=== PATIENT | male | born 1965 | race Caucasian/White ===

== ENCOUNTER 2016-06-16 08:42 | Emergency (ER) | payer BC ==
[~2016-06-16] VITALS: Ht 182.9 cm; Wt 111.4 kg
[2016-06-16 09:32] LABS: HEMATOCRIT 45.3 % (38.0-50.0); MCH 30.8 PG (29.0-34.0); MCV 90.6 FL (86-99); MEAN PLAT.VOLUME 10.5 uM^3 (9.0-12.4); PLATELET COUNT 209 K/uL (156-360); RBC DIS.WIDTH-CV 13.2 % (11.8-14.6); RBC DIS.WIDTH-SD 43.5 % (39-53); WHITE BLOOD COUNT 6.5 K/uL (4.1-10.2)
[2016-06-16 09:46] LABS: CHLORIDE 106 mEq/L (99-109); POTASSIUM 4.6 mEq/L (3.7-5.4); SODIUM 137 mEq/L (136-147)
[2016-06-16 09:48] LABS: GLUCOSE 138 mg/dL (70-99)
[2016-06-16 09:49] LABS: ANION GAP 9 MEQ/L (2-14)
[2016-06-16 09:50] LABS: TOTAL BILIRUBIN 0.6 mg/dL (0.0-1.0)
[2016-06-16 09:51] LABS: ALKALINE PHOSPHATASE 81 IU/L (3-129)
[2016-06-16 09:52] LABS: GFR ESTIMATE (CALCULATED) > 59 mL/min/
[2016-06-16 09:52] LABS: ADD MIUA? NO; BILIRUBIN NEGATIVE; BLOOD NEGATIVE; COLOR YELLOW ((YELLOW)); GLUCOSE (STRIP) NEGATIVE; KETONES NEGATIVE; LEUKOCYTES NEGATIVE; NITRITE NEGATIVE; PROTEIN (STRIP) NEGATIVE; SPECIFIC GRAVITY 1.012 (1.000-1.030); UCUL ADDED? NO; UROBILINOGEN 0.2 MG/DL (0.2-1.0)
[2016-06-16 09:53] LABS: UREA NITROGEN (BUN) 24 mg/dL (9-23)
[2016-06-16 10:20] LABS: INFLUENZA A VIRAL ANTIGEN NEGATIVE; INFLUENZA B VIRAL ANTIGEN NEGATIVE
[2016-06-16] MEDS ORDERED: TRAMADOL HCL50 MG PO (10:49)
[2016-06-16] MEDS ORDERED: ZOFRAN ODT4 MG PO (10:49)
[2016-06-16 11:06] VITALS: BP 115/65
== END 2016-06-16 11:09 | disposition home or self-care (01) ==
LOC: EME 08:42
PROVIDERS: Nurse Practitioner Family
DX: A08.4 Viral intestinal infection, unspecified (principal); Z86.73 Personal history of transient ischemic attack (TIA), and cerebral infarction without residual deficits; Z87.891 Personal history of nicotine dependence
CPT/HCPCS: 74176; 80053; 81003; 85027; 87502; 99281; 99284; J2405; J3010; J7030

== ENCOUNTER 2016-10-18 23:15 | Emergency (ER) | payer BC ==
[~2016-10-18] VITALS: Ht 182.9 cm; Wt 112.5 kg
[~2016-10-18 23:15] MED LIST: TRAMADOL HCL50 MG PO; ZOFRAN ODT4 MG PO
[2016-10-19 01:23] LABS: HEMATOCRIT 46.2 % (38.0-50.0); MCH 30.8 PG (29.0-34.0); MCHC 33.5 G/DL (30.0-36.0); MCV 91.7 FL (86-99); MEAN PLAT.VOLUME 10.4 uM^3 (9.0-12.4); PLATELET COUNT 184 K/uL (156-360); RBC DIS.WIDTH-SD 42.9 % (39-53); RED BLOOD COUNT 5.04 M/uL (4.00-5.50); WHITE BLOOD COUNT 8.6 K/uL (4.1-10.2)
[2016-10-19 01:41] LABS: CHLORIDE 106 mEq/L (99-109); POTASSIUM 4.1 mEq/L (3.7-5.4); SODIUM 142 mEq/L (136-147)
[2016-10-19 01:42] LABS: MAGNESIUM 2.3 mg/dL (1.3-2.7)
[2016-10-19 01:43] LABS: GLUCOSE 103 mg/dL (70-99)
[2016-10-19 01:44] LABS: ANION GAP 9 MEQ/L (2-14)
[2016-10-19 01:47] LABS: GFR ESTIMATE (CALCULATED) > 59 mL/min/
[2016-10-19 01:48] LABS: UREA NITROGEN (BUN) 24 mg/dL (9-23)
[2016-10-19 01:49] LABS: TROP-I INTERPRETATION NEGATIVE; TROPONIN-I < 0.01 ng/mL (0.0-0.30)
[2016-10-19 02:37] VITALS: BP 100/66
== END 2016-10-19 02:30 | disposition home or self-care (01) ==
LOC: EME 23:15
DX: R00.2 Palpitations (principal); R07.9 Chest pain, unspecified; F32.9 Major depressive disorder, single episode, unspecified; Z86.73 Personal history of transient ischemic attack (TIA), and cerebral infarction without residual deficits; Z87.891 Personal history of nicotine dependence
CPT/HCPCS: 71020; 80048; 83735; 84484; 85027; 93005

== ENCOUNTER 2016-12-01 06:29 | Emergency (ER) | payer BC ==
[~2016-12-01] VITALS: Ht 182.9 cm; Wt 114.1 kg
[2016-12-01 07:35] LABS: HEMATOCRIT 43.7 % (38.0-50.0); MCH 31.3 PG (29.0-34.0); MCHC 34.6 G/DL (30.0-36.0); MCV 90.7 FL (86-99); MEAN PLAT.VOLUME 9.9 uM^3 (9.0-12.4); PLATELET COUNT 162 K/uL (156-360); RBC DIS.WIDTH-CV 12.9 % (11.8-14.6); RBC DIS.WIDTH-SD 42.5 % (39-53); RED BLOOD COUNT 4.82 M/uL (4.00-5.50); WHITE BLOOD COUNT 7.6 K/uL (4.1-10.2)
[2016-12-01] MEDS ORDERED: LISINOPRIL20 MG PO (07:39)
[2016-12-01] MEDS ORDERED: OMEPRAZOLE20 MG PO (07:40)
[2016-12-01] MEDS ORDERED: HYDROCHLOROTH12.5 M3 PO (07:40)
[2016-12-01] MEDS ORDERED: ST. JOSEPH ASPI81 MG PO (07:41)
[2016-12-01] MEDS ORDERED: LIPITOR80 MG PO (07:41)
[2016-12-01] MEDS ORDERED: LOPRESSOR50 MG PO (07:41)
[2016-12-01] MEDS ORDERED: CLONAZEPAM1 MG PO (07:42)
[2016-12-01] MEDS ORDERED: CILOSTAZOL100 MG PO (07:42)
[2016-12-01] MEDS ORDERED: ZOLOFT50 MG PO (07:43)
[2016-12-01 08:09] LABS: ANION GAP 6 MEQ/L (2-14); CHLORIDE 100 MEQ/L (99-109); CREATINE KINASE 79 IU/L (1-294); GFR ESTIMATE (CALCULATED) > 59 mL/min/; GLUCOSE 109 mg/dL (70-99); POTASSIUM 4.4 MEQ/L (3.7-5.4); SAMPLE HEMOLYSIS CHECK 0; SAMPLE ICTERIC CHECK 0; SAMPLE LIPEMIA CHECK 0; SODIUM 136 MEQ/L (136-147); UREA NITROGEN (BUN) 21 mg/dL (9-23)
[2016-12-01 10:03] VITALS: BP 98/61
== END 2016-12-01 10:07 | disposition home or self-care (01) ==
LOC: EME 06:29
PROVIDERS: Emergency Medicine
DX: R20.2 Paresthesia of skin (principal); I73.9 Peripheral vascular disease, unspecified; I69.351 Hemiplegia and hemiparesis following cerebral infarction affecting right dominant side; Z79.82 Long term (current) use of aspirin; Z87.891 Personal history of nicotine dependence
CPT/HCPCS: 80048; 82550; 85027; 99281; 99284; J7030

== ENCOUNTER 2016-12-08 04:50 | Emergency (ER) | payer BC ==
[~2016-12-08] VITALS: Ht 182.9 cm; Wt 115.3 kg
[~2016-12-08 04:50] MED LIST changes: +CILOSTAZOL100 MG PO; +CLONAZEPAM1 MG PO; +HYDROCHLOROTH12.5 M3 PO; +LIPITOR80 MG PO; +LISINOPRIL20 MG PO; +LOPRESSOR50 MG PO; +OMEPRAZOLE20 MG PO; +ST. JOSEPH ASPI81 MG PO; +ZOLOFT50 MG PO
[2016-12-08 05:38] LABS: HEMATOCRIT 43.8 % (38.0-50.0); MCH 31.5 PG (29.0-34.0); MCHC 34.9 G/DL (30.0-36.0); MCV 90.3 FL (86-99); MEAN PLAT.VOLUME 10.2 uM^3 (9.0-12.4); PLATELET COUNT 192 K/uL (156-360); RBC DIS.WIDTH-CV 12.9 % (11.8-14.6); RBC DIS.WIDTH-SD 41.7 % (39-53); RED BLOOD COUNT 4.85 M/uL (4.00-5.50)
[2016-12-08 05:43] LABS: CHLORIDE 102 mEq/L (99-109); POTASSIUM 3.9 mEq/L (3.7-5.4); SODIUM 138 mEq/L (136-147)
[2016-12-08 05:45] LABS: GLUCOSE 111 mg/dL (70-99)
[2016-12-08 05:49] LABS: ANION GAP 12 MEQ/L (2-14); GFR ESTIMATE (CALCULATED) > 59 mL/min/
[2016-12-08 05:50] LABS: UREA NITROGEN (BUN) 15 mg/dL (9-23)
[2016-12-08 06:08] LABS: TOTAL BILIRUBIN 0.6 mg/dL (0.0-1.0)
[2016-12-08 06:09] LABS: ALKALINE PHOSPHATASE 86 IU/L (3-129)
[2016-12-08 06:11] LABS: DIRECT BILIRUBIN 0.2 mg/dL (0.0-0.3)
[2016-12-08 06:12] LABS: LIPASE 47 U/L (1.0-51.0)
[2016-12-08 07:35] LABS: ADD MIUA? NO; BILIRUBIN NEGATIVE; BLOOD NEGATIVE; COLOR STRAW ((YELLOW)); GLUCOSE (STRIP) NEGATIVE; KETONES NEGATIVE; LEUKOCYTES NEGATIVE; NITRITE NEGATIVE; PROTEIN (STRIP) NEGATIVE; SPECIFIC GRAVITY 1.004 (1.000-1.030); UROBILINOGEN 0.2 MG/DL (0.2-1.0)
[2016-12-08 07:37] LABS: UCUL ADDED? NO
[2016-12-08] MEDS ORDERED: MIRALAX17 GM PO (13:04)
[2016-12-08 13:19] VITALS: BP 104/66
== END 2016-12-08 13:19 | disposition home or self-care (01) ==
LOC: EME 04:50
DX: R10.30 Lower abdominal pain, unspecified (principal); K59.00 Constipation, unspecified; R11.2 Nausea with vomiting, unspecified; Z79.82 Long term (current) use of aspirin; Z87.891 Personal history of nicotine dependence
CPT/HCPCS: 74177; 80048; 80076; 81003; 83690; 85027; J2270; J2405; J7030

== ENCOUNTER 2016-12-14 04:10 | Emergency (ER) | payer BC ==
[~2016-12-14] VITALS: Ht 182.9 cm; Wt 113.6 kg
[~2016-12-14 04:10] MED LIST changes: +MIRALAX17 GM PO
[2016-12-14 05:09] VITALS: BP 140/86
== END 2016-12-14 05:10 | disposition home or self-care (01) ==
LOC: EME 04:10
DX: S93.402A Sprain of unspecified ligament of left ankle, initial encounter (principal); M77.32 Calcaneal spur, left foot; X50.9XXA Other and unspecified overexertion or strenuous movements or postures, initial encounter
CPT/HCPCS: 73610; 99281; 99283

== ENCOUNTER 2017-02-08 22:40 | Emergency (ER) | payer BC ==
[~2017-02-08] VITALS: Ht 182.9 cm; Wt 118.3 kg
[2017-02-09] MEDS ORDERED: PERCOCET 5/31 TABLET PO (00:04)
[2017-02-09] MEDS ORDERED: INDOCIN50 MG PO (00:04)
[2017-02-09 00:23] VITALS: BP 133/72
== END 2017-02-09 00:24 | disposition home or self-care (01) ==
LOC: EME 22:40 → RME 22:40
DX: I80.02 Phlebitis and thrombophlebitis of superficial vessels of left lower extremity (principal); F32.9 Major depressive disorder, single episode, unspecified; I69.328 Other speech and language deficits following cerebral infarction; I69.311 Memory deficit following cerebral infarction; I69.353 Hemiplegia and hemiparesis following cerebral infarction affecting right non-dominant side; Z87.891 Personal history of nicotine dependence; Z79.82 Long term (current) use of aspirin; Z88.6 Allergy status to analgesic agent; Z88.8 Allergy status to other drugs, medicaments and biological substances
CPT/HCPCS: 93971; 99281; 99284

== ENCOUNTER 2017-07-03 13:18 | Inpatient (IN) | payer BC ==
[~2017-07-03] VITALS: Ht 182.9 cm; Wt 105.5 kg
[~2017-07-03 13:18] MED LIST changes: +INDOCIN50 MG PO; +PERCOCET 5/31 TABLET PO
[2017-07-03 14:17] LABS: HEMOGLOBIN 16.4 G/DL (12.5-16.6); MCH 32.3 PG (29.0-34.0); MCHC 35.7 G/DL (30.0-36.0); MCV 90.6 FL (86-99); PLATELET COUNT 217 K/uL (156-360); RBC DIS.WIDTH-CV 12.8 % (11.8-14.6); RBC DIS.WIDTH-SD 42.1 % (39-53); RED BLOOD COUNT 5.08 M/uL (4.00-5.50); WHITE BLOOD COUNT 6.6 K/uL (4.1-10.2)
[2017-07-03 14:26] LABS: CHLORIDE 98 mEq/L (99-109); POTASSIUM 3.3 mEq/L (3.7-5.4); SODIUM 138 mEq/L (136-147)
[2017-07-03 14:27] LABS: GLUCOSE 97 mg/dL (70-99)
[2017-07-03 14:31] LABS: GFR ESTIMATE (CALCULATED) > 59 mL/min/ (58.99-99999); SERUM ETHYL ALCOHOL < 10 mg/dL
[2017-07-03 14:33] LABS: UREA NITROGEN (BUN) 12 mg/dL (9-23)
[2017-07-03 14:35] LABS: ACETAMINOPHEN (TYLENOL) < 10 mcg/mL (10-30); SALICYLATE < 5.0 MG/DL (15-30)
[2017-07-03 14:56] LABS: AMPHETAMINE NEGATIVE (500 ng/mL); BARBITURATES NEGATIVE (200 ng/mL); BENZODIAZEPINES NEGATIVE (150 ng/mL); BUPRENORPHINE NEGATIVE (10 ng/mL); COCAINE NEGATIVE (150 ng/mL); METHADONE NEGATIVE (200 ng/mL); METHAMPHETAMINE NEGATIVE (500 ng/mL); OPIATES (MORPHINE) NEGATIVE (100 ng/mL); OXYCODONE NEGATIVE (100 ng/mL); PHENCYCLIDINE NEGATIVE (25 ng/mL); PROPOXYPHENE NEGATIVE (300 ng/mL); THC CANNABINOIDS NEGATIVE (50 ng/mL); TRICYCLIC ANTIDEPRESSANTS NEGATIVE (300 ng/mL)
[2017-07-03] MEDS ORDERED: LASIX20 MG PO (15:30)
[2017-07-03] MEDS ORDERED: CRESTOR40 MG PO (15:30)
[2017-07-03] MEDS ORDERED: LYRICA25 MG PO (15:30)
[2017-07-03] MEDS ORDERED: LOMOTIL TABLET1 EACH PO (15:31)
[2017-07-03] MEDS ORDERED: LEVOTHYROXINE112 MCG PO (15:31)
[2017-07-03 18:14] VITALS: BP 132/72
[2017-07-04 07:19] VITALS: BP 108/58
[2017-07-04 15:49] VITALS: BP 94/55
[2017-07-05 07:25] VITALS: BP 119/64
[2017-07-05] MEDS ORDERED: MIRTAZAPINE15 MG PO (09:35)
== END 2017-07-05 12:57 | disposition home or self-care (01) | DRG 882 ==
LOC: EME 13:18 → EDOF 16:53 → 1WEST 16:53 → ENRESERV 17:38 → 1WEST 18:07
PROVIDERS: Emergency Medicine; Psychiatry & Neurology Psychiatry
PROC: 0HQEXZZ Repair Left Lower Arm Skin, External Approach (ICD-10-PCS; principal; 2017-07-03)
DX: F43.25 Adjustment disorder with mixed disturbance of emotions and conduct (principal); F43.23 Adjustment disorder with mixed anxiety and depressed mood; S61.512A Laceration without foreign body of left wrist, initial encounter; X78.8XXA Intentional self-harm by other sharp object, initial encounter; Z59.0 Homelessness; I69.351 Hemiplegia and hemiparesis following cerebral infarction affecting right dominant side; I69.328 Other speech and language deficits following cerebral infarction; R47.81 Slurred speech; I69.311 Memory deficit following cerebral infarction; G89.29 Other chronic pain; M54.9 Dorsalgia, unspecified; G25.81 Restless legs syndrome; E03.9 Hypothyroidism, unspecified; E78.00 Pure hypercholesterolemia, unspecified; Z87.891 Personal history of nicotine dependence
CPT/HCPCS: 80048; 82948; 85027; 90837; 99281; 99285; G0480

== ENCOUNTER 2017-07-15 13:00 | Emergency (ER) | payer BC ==
[~2017-07-15] VITALS: Ht 182.9 cm; Wt 110.9 kg
[~2017-07-15 13:00] MED LIST changes: +CRESTOR40 MG PO; +LASIX20 MG PO; +LEVOTHYROXINE112 MCG PO; +LOMOTIL TABLET1 EACH PO; +LYRICA25 MG PO; +MIRTAZAPINE15 MG PO
[2017-07-15 14:57] LABS: HEMATOCRIT 39.5 % (38.0-50.0); MCH 32.2 PG (29.0-34.0); MCHC 34.7 G/DL (30.0-36.0); MCV 92.9 FL (86-99); RBC DIS.WIDTH-CV 13.4 % (11.8-14.6); RBC DIS.WIDTH-SD 45.2 % (39-53); RED BLOOD COUNT 4.25 M/uL (4.00-5.50); WHITE BLOOD COUNT 7.1 K/uL (4.1-10.2)
[2017-07-15 15:02] LABS: CHLORIDE 111 mEq/L (99-109); POTASSIUM 4.1 mEq/L (3.7-5.4); SODIUM 144 mEq/L (136-147)
[2017-07-15 15:04] LABS: GLUCOSE 90 mg/dL (70-99); PTT 28.1 SEC (25-37)
[2017-07-15 15:08] LABS: CREATININE 0.9 mg/dL (0.6-1.3); GFR ESTIMATE (CALCULATED) > 59 mL/min/ (58.99-99999)
[2017-07-15 15:09] LABS: UREA NITROGEN (BUN) 11 mg/dL (9-23)
[2017-07-15 15:23] LABS: HEMOGLOBIN 13.7 G/DL (12.5-16.6)
[2017-07-15 15:27] LABS: PLAT.SUFFICIENCY ADEQUATE
[2017-07-15 15:31] LABS: PLATELET COUNT 143 K/uL (156-360)
[2017-07-15] MEDS ORDERED: ULTRAM50 MG PO (16:30)
[2017-07-15 16:43] VITALS: BP 137/78
== END 2017-07-15 16:44 | disposition home or self-care (01) ==
LOC: EME 13:00
PROVIDERS: Nurse Practitioner Family
DX: I73.9 Peripheral vascular disease, unspecified (principal); R20.2 Paresthesia of skin; I69.328 Other speech and language deficits following cerebral infarction; I69.351 Hemiplegia and hemiparesis following cerebral infarction affecting right dominant side; K21.9 Gastro-esophageal reflux disease without esophagitis; I10 Essential (primary) hypertension; F32.9 Major depressive disorder, single episode, unspecified; Z87.891 Personal history of nicotine dependence; Z88.8 Allergy status to other drugs, medicaments and biological substances; Z79.82 Long term (current) use of aspirin
CPT/HCPCS: 80048; 85027; 85610; 85730; 93971; 99281; 99284; J1885

== ENCOUNTER 2017-08-01 00:44 | Emergency (ER) | payer BC ==
[~2017-08-01] VITALS: Ht 182.9 cm; Wt 109.0 kg
[~2017-08-01 00:44] MED LIST changes: +ULTRAM50 MG PO
[2017-08-01] MEDS ORDERED: MEDROL DOSEPAK4 MG PO (02:43)
[2017-08-01] MEDS ORDERED: NORCO 5/3251 TABLET PO (02:43)
[2017-08-01 03:07] VITALS: BP 124/72
== END 2017-08-01 03:07 | disposition home or self-care (01) ==
LOC: EME 00:44
PROC: 3E0U3BZ Introduction of Anesthetic Agent into Joints, Percutaneous Approach (ICD-10-PCS; principal; 2017-08-01)
DX: M25.511 Pain in right shoulder (principal); I69.351 Hemiplegia and hemiparesis following cerebral infarction affecting right dominant side; I69.328 Other speech and language deficits following cerebral infarction; R47.81 Slurred speech; Z87.39 Personal history of other diseases of the musculoskeletal system and connective tissue; Z88.6 Allergy status to analgesic agent; Z88.8 Allergy status to other drugs, medicaments and biological substances
CPT/HCPCS: 73030; 99281; 99283; J7512; S0020

== ENCOUNTER 2017-08-09 04:34 | Observation (INO) | payer BC, OTHER ==
[~2017-08-09] VITALS: Ht 182.9 cm; Wt 101.8 kg
[~2017-08-09 04:34] MED LIST changes: +MEDROL DOSEPAK4 MG PO; +NORCO 5/3251 TABLET PO
[2017-08-09 05:39] LABS: HEMATOCRIT 45.7 % (38.0-50.0); MCH 31.4 PG (29.0-34.0); MCHC 34.6 G/DL (30.0-36.0); MCV 90.9 FL (86-99); RBC DIS.WIDTH-CV 13.3 % (11.8-14.6); RED BLOOD COUNT 5.03 M/uL (4.00-5.50); WHITE BLOOD COUNT 9.1 K/uL (4.1-10.2)
[2017-08-09 05:42] LABS: HEMOGLOBIN 15.8 G/DL (12.5-16.6); PLATELET COUNT 203 K/uL (156-360)
[2017-08-09 05:45] LABS: CHLORIDE 100 mEq/L (99-109); POTASSIUM 4.2 mEq/L (3.7-5.4); SODIUM 137 mEq/L (136-147)
[2017-08-09 05:47] LABS: GLUCOSE 109 mg/dL (70-99)
[2017-08-09 05:51] LABS: GFR ESTIMATE (CALCULATED) > 59 mL/min/ (58.99-99999)
[2017-08-09 05:52] LABS: UREA NITROGEN (BUN) 22 mg/dL (9-23)
[2017-08-09 05:56] LABS: TROP-I INTERPRETATION NEGATIVE; TROPONIN-I < 0.01 ng/mL (0.0-0.30)
[2017-08-09] MEDS ORDERED: MIRTAZAPINE15 MG PO (08:02)
[2017-08-09] MEDS ORDERED: MULTIVITAMIN1 EAC2 PO (08:14)
[2017-08-09 08:41] LABS: BASE EXCESS 2.4 mEq/L (-3 to +3); BICARBONATE 26.4 mEq/L (22-26); COMMENTS - BLOOD GASES A+C+; DEVICE NC; O2 FLOW 2 L/MIN; PCO2 38 mm Hg (35-45); PO2 75 mm Hg (80-100); SITE LR; TOTAL RESP RATE 16 resp/min; pH 7.45 (7.35-7.45)
[2017-08-09 08:45] LABS: D-DIMER ELISA < 150.00 ng/mLDDU (<230)
[2017-08-09 09:00] LABS: HDL CHOLESTEROL 40 MG/DL (Desirable>=40); LDL CHOLESTEROL 103 mg/dL (Desirable<100); NON-HDL CHOLESTEROL 128 mg/dL (Desirable<160); TOTAL CHOLESTEROL 168 mg/dL (Desirable<200); TRIGLYCERIDES 124 MG/DL (Normal: <150)
[2017-08-09 09:36] VITALS: BP 106/61
[2017-08-09 09:36] LABS: C-REACTIVE PROTEIN 1.2 MG/L (0-10); CREATINE KINASE 46 IU/L (1-294); MAGNESIUM 2.1 mg/dl (1.3-2.7)
[2017-08-09 12:38] VITALS: BP 106/57
[2017-08-09 13:17] LABS: HEMOGLOBIN A1c (GLYCOHEMOGLOB) 5.6 % (Below 5.7)
[2017-08-09 14:03] LABS: TROP-I INTERPRETATION NEGATIVE; TROPONIN-I < 0.01 ng/mL (0.0-0.30)
[2017-08-09 16:02] VITALS: BP 112/56
[2017-08-09 19:37] VITALS: BP 113/58
[2017-08-09 22:45] LABS: TROP-I INTERPRETATION NEGATIVE; TROPONIN-I < 0.01 ng/mL (0.0-0.30)
[2017-08-10 00:28] VITALS: BP 102/65
[2017-08-10 04:55] LABS: HEMOGLOBIN 14.4 G/DL (12.5-16.6); MCH 32.2 PG (29.0-34.0); MCHC 35.1 G/DL (30.0-36.0); MCV 91.7 FL (86-99); PLATELET COUNT 175 K/uL (156-360); RBC DIS.WIDTH-CV 13.2 % (11.8-14.6); RBC DIS.WIDTH-SD 44.1 % (39-53); RED BLOOD COUNT 4.47 M/uL (4.00-5.50); WHITE BLOOD COUNT 10.4 K/uL (4.1-10.2)
[2017-08-10 05:12] LABS: ALBUMIN 3.7 g/dL (3.2-4.8); CHLORIDE 108 mEq/L (99-109); POTASSIUM 4.3 mEq/L (3.7-5.4); SODIUM 138 mEq/L (136-147)
[2017-08-10 05:14] LABS: GLUCOSE 103 mg/dL (70-99); TOTAL PROTEIN 6.1 g/dL (6.4-8.3)
[2017-08-10 05:16] LABS: TOTAL BILIRUBIN 0.5 mg/dL (0.0-1.0)
[2017-08-10 05:18] LABS: ALKALINE PHOSPHATASE 89 IU/L (3-129); CREATININE 0.9 mg/dL (0.6-1.3); GFR ESTIMATE (CALCULATED) > 59 mL/min/ (58.99-99999)
[2017-08-10 05:19] LABS: UREA NITROGEN (BUN) 14 mg/dL (9-23)
[2017-08-10 05:20] LABS: AST (GOT) 21 IU/L (2-34)
[2017-08-10 05:21] LABS: ALT (GPT) 43 IU/L (3-49)
[2017-08-10] MEDS ORDERED: AZITHROMYCIN500 M1 PO (05:21)
[2017-08-10] MEDS ORDERED: VENTOLIN HFA18 GM IH (05:23)
[2017-08-10] MEDS ORDERED: PREDNISONE10 MG PO (05:23)
[2017-08-10] MEDS ORDERED: NITROSTAT0.4 MG SL (05:28)
[2017-08-10 08:13] VITALS: BP 138/84
[2017-08-10 08:14] VITALS: BP 138/84
== END 2017-08-10 08:00 | disposition home or self-care (01) ==
LOC: EME 04:34 → 4SOUTH 07:46 → EDOF 07:46 → 4SOUTH 07:46 → EDOF 07:46 → ENRESERV 07:47 → 4SOUTH 09:32
PROVIDERS: Internal Medicine
DX: R07.2 Precordial pain (principal); J44.1 Chronic obstructive pulmonary disease with (acute) exacerbation; J96.01 Acute respiratory failure with hypoxia; I10 Essential (primary) hypertension; Z79.82 Long term (current) use of aspirin; K21.9 Gastro-esophageal reflux disease without esophagitis; F32.9 Major depressive disorder, single episode, unspecified; I69.351 Hemiplegia and hemiparesis following cerebral infarction affecting right dominant side; I69.328 Other speech and language deficits following cerebral infarction; Z87.891 Personal history of nicotine dependence; I73.9 Peripheral vascular disease, unspecified; E78.5 Hyperlipidemia, unspecified; F41.9 Anxiety disorder, unspecified; I95.2 Hypotension due to drugs; T46.3X5A Adverse effect of coronary vasodilators, initial encounter
CPT/HCPCS: 36600; 71046; 80048; 80053; 80061; 82550; 82550 91; 82803; 83036; 83735; 83880; 84484; 85027; 85379; 85610; 85651; 86140; 93005; 94640; 94799; 99202; 99281; 99285; G0378; J1650; J7030; J7512

== ENCOUNTER 2017-09-12 21:36 | Inpatient (IN) | payer OTHER ==
[~2017-09-12] VITALS: Ht 182.9 cm; Wt 116.3 kg
[~2017-09-12 21:36] MED LIST changes: +AZITHROMYCIN500 M1 PO; +MULTIVITAMIN1 EAC2 PO; +NITROSTAT0.4 MG SL; +PREDNISONE10 MG PO; +VENTOLIN HFA18 GM IH
[2017-09-12 22:07] LABS: HEMATOCRIT 45.9 % (38.0-50.0); MCH 31.9 PG (29.0-34.0); MCHC 34.9 G/DL (30.0-36.0); MCV 91.4 FL (86-99); PLATELET COUNT 168 K/uL (156-360); RBC DIS.WIDTH-CV 13.3 % (11.8-14.6); RBC DIS.WIDTH-SD 43.8 % (39-53); RED BLOOD COUNT 5.02 M/uL (4.00-5.50); WHITE BLOOD COUNT 9.5 K/uL (4.1-10.2)
[2017-09-12 22:15] LABS: ALBUMIN 4.3 g/dL (3.2-4.8); CHLORIDE 103 mEq/L (99-109); POTASSIUM 4.1 mEq/L (3.7-5.4); SODIUM 139 mEq/L (136-147)
[2017-09-12 22:18] LABS: GLUCOSE 101 mg/dL (70-99); TOTAL PROTEIN 7.4 g/dL (6.4-8.3)
[2017-09-12 22:19] LABS: TOTAL BILIRUBIN 0.4 mg/dL (0.0-1.0)
[2017-09-12 22:20] LABS: SERUM ETHYL ALCOHOL < 10 mg/dL
[2017-09-12 22:21] LABS: CREATININE 0.9 mg/dL (0.6-1.3); GFR ESTIMATE (CALCULATED) > 59 mL/min/ (58.99-99999)
[2017-09-12 22:22] LABS: ALKALINE PHOSPHATASE 110 IU/L (3-129)
[2017-09-12 22:23] LABS: AST (GOT) 24 IU/L (2-34); UREA NITROGEN (BUN) 16 mg/dL (9-23)
[2017-09-12 22:25] LABS: ACETAMINOPHEN (TYLENOL) < 10 mcg/mL (10-30); ALT (GPT) 44 IU/L (3-49); SALICYLATE < 5.0 MG/DL (15-30)
[2017-09-13 01:05] LABS: SALICYLATE < 5.0 MG/DL (15-30)
[2017-09-13 01:06] LABS: ACETAMINOPHEN (TYLENOL) < 10 mcg/mL (10-30)
[2017-09-13 01:12] LABS: AMPHETAMINE NEGATIVE (500 ng/mL); BARBITURATES NEGATIVE (200 ng/mL); BENZODIAZEPINES PRESUMPTIVE POSITIVE (150 ng/mL); BUPRENORPHINE NEGATIVE (10 ng/mL); COCAINE NEGATIVE (150 ng/mL); METHADONE NEGATIVE (200 ng/mL); METHAMPHETAMINE NEGATIVE (500 ng/mL); OPIATES (MORPHINE) NEGATIVE (100 ng/mL); OXYCODONE NEGATIVE (100 ng/mL); PHENCYCLIDINE NEGATIVE (25 ng/mL); PROPOXYPHENE NEGATIVE (300 ng/mL); THC CANNABINOIDS NEGATIVE (50 ng/mL); TRICYCLIC ANTIDEPRESSANTS NEGATIVE (300 ng/mL)
[2017-09-13 02:08] LABS: BENZODIAZEPINES, URINE SCREEN POSITIVE (200 ng/mL)
[2017-09-13 04:22] LABS: CARBON DIOXIDE (BICARBONATE) 26.7 MEQ/L (20-31)
[2017-09-13 04:38] LABS: CHLORIDE 107 mEq/L (99-109); POTASSIUM 3.7 mEq/L (3.7-5.4); SODIUM 139 mEq/L (136-147)
[2017-09-13 04:39] LABS: GLUCOSE 142 mg/dL (70-99)
[2017-09-13 04:43] LABS: GFR ESTIMATE (CALCULATED) > 59 mL/min/ (58.99-99999)
[2017-09-13 04:44] LABS: UREA NITROGEN (BUN) 16 mg/dL (9-23)
[2017-09-13 09:43] VITALS: BP 128/76
[2017-09-13 09:47] VITALS: BP 128/76
[2017-09-13] MEDS ORDERED: ANORO ELLIPTA1 EACH IH (11:12)
[2017-09-13] MEDS ORDERED: ALPRAZOLAM0.5 MG PO (11:13)
[2017-09-13] MEDS ORDERED: LOMOTIL TABLET1 EACH PO (11:13)
[2017-09-13] MEDS ORDERED: HYDROCHLOROTH12.5 M3 PO (11:14)
[2017-09-13] MEDS ORDERED: LOPRESSOR50 MG PO (11:14)
[2017-09-13 12:47] VITALS: BP 125/74
[2017-09-13 16:15] VITALS: BP 126/79
[2017-09-13 19:00] VITALS: BP 103/59
[2017-09-13 22:45] VITALS: BP 100/59
[2017-09-14 03:05] VITALS: BP 112/64
[2017-09-14 05:17] LABS: HEMATOCRIT 37.6 % (38.0-50.0); MCH 31.1 PG (29.0-34.0); MCHC 33.8 G/DL (30.0-36.0); MCV 92.2 FL (86-99); PLATELET COUNT 134 K/uL (156-360); RBC DIS.WIDTH-CV 13.2 % (11.8-14.6); RBC DIS.WIDTH-SD 44.3 % (39-53); RED BLOOD COUNT 4.08 M/uL (4.00-5.50); WHITE BLOOD COUNT 7.2 K/uL (4.1-10.2)
[2017-09-14 05:21] LABS: HEMOGLOBIN 12.7 G/DL (12.5-16.6)
[2017-09-14 05:25] LABS: CHLORIDE 110 MEQ/L (99-109); GFR ESTIMATE (CALCULATED) > 59 mL/min/ (58.99-99999); SODIUM 138 MEQ/L (136-147); UREA NITROGEN (BUN) 14 mg/dL (9-23)
[2017-09-14 05:37] LABS: GLUCOSE 104 mg/dL (70-99)
[2017-09-14 07:08] VITALS: BP 119/61
[2017-09-14 12:10] VITALS: BP 104/58
[2017-09-14 16:10] VITALS: BP 120/68
[2017-09-14 19:33] VITALS: BP 127/64
[2017-09-14 23:00] VITALS: BP 116/70
[2017-09-15 04:00] VITALS: BP 130/71
[2017-09-15 05:26] LABS: HEMATOCRIT 39.4 % (38.0-50.0); HEMOGLOBIN 13.3 G/DL (12.5-16.6); MCH 31.1 PG (29.0-34.0); MCHC 33.8 G/DL (30.0-36.0); MCV 92.1 FL (86-99); PLATELET COUNT 139 K/uL (156-360); RBC DIS.WIDTH-CV 13.5 % (11.8-14.6); RBC DIS.WIDTH-SD 44.9 % (39-53); RED BLOOD COUNT 4.28 M/uL (4.00-5.50); WHITE BLOOD COUNT 6.6 K/uL (4.1-10.2)
[2017-09-15 05:53] LABS: ALBUMIN 3.6 G/DL (3.2-4.8); ALKALINE PHOSPHATASE 67 IU/L (3-129); ALT (GPT) 28 IU/L (3-49); AST (GOT) 18 IU/L (2-34); CHLORIDE 110 MEQ/L (99-109); GFR ESTIMATE (CALCULATED) > 59 mL/min/ (58.99-99999); GLUCOSE 87 mg/dL (70-99); MAGNESIUM 1.8 mg/dl (1.3-2.7); POTASSIUM 4.1 MEQ/L (3.7-5.4); SODIUM 142 MEQ/L (136-147); TOTAL BILIRUBIN 0.5 MG/DL (0.0-1.0); TOTAL PROTEIN 5.6 G/DL (6.4-8.3); UREA NITROGEN (BUN) 8 mg/dL (9-23)
[2017-09-15 08:10] VITALS: BP 138/76
[2017-09-15 11:49] VITALS: BP 131/62
[2017-09-15 15:20] VITALS: BP 121/58
[2017-09-15] MEDS ORDERED: METOPROLOL TART25 MG PO (17:29)
[2017-09-15 20:00] VITALS: BP 147/91
[2017-09-15 23:55] VITALS: BP 173/85
[2017-09-16 04:00] VITALS: BP 159/87
[2017-09-16 09:24] VITALS: BP 144/83
[2017-09-16 12:04] VITALS: BP 130/82
[2017-09-16 17:04] VITALS: BP 137/79
[2017-09-16 20:00] VITALS: BP 133/69
[2017-09-16 23:55] VITALS: BP 104/64
[2017-09-17 07:54] VITALS: BP 124/74
[2017-09-17 11:47] VITALS: BP 120/67
[2017-09-17 17:04] VITALS: BP 130/69
[2017-09-17 19:18] VITALS: BP 122/76
[2017-09-17 23:38] VITALS: BP 114/73
[2017-09-18 03:58] VITALS: BP 122/69
[2017-09-18 07:23] VITALS: BP 144/89
[2017-09-18 12:12] VITALS: BP 108/57
[2017-09-18 16:12] VITALS: BP 132/76
[2017-09-18 19:13] VITALS: BP 118/70
[2017-09-18 23:49] VITALS: BP 105/63
[2017-09-19 04:13] VITALS: BP 102/61
[2017-09-19 08:50] VITALS: BP 136/81
[2017-09-19 11:48] VITALS: BP 124/70
== END 2017-09-19 14:47 | DRG 918 ==
LOC: EME → EDBD 21:36 → EME 21:36 → EDOF 09-13 07:27 → 4EAST 09-13 07:27 → ENRESERV 09-13 08:37 → 4EAST 09-13 09:40
PROVIDERS: Emergency Medicine; Internal Medicine
PROC: 5A09357 Assistance with Respiratory Ventilation, Less than 24 Consecutive Hours, Continuous Positive Airway Pressure (ICD-10-PCS; principal; 2017-09-13)
DX: T42.4X2A Poisoning by benzodiazepines, intentional self-harm, initial encounter (principal); T44.7X2A Poisoning by beta-adrenoreceptor antagonists, intentional self-harm, initial encounter; T46.4X2A Poisoning by angiotensin-converting-enzyme inhibitors, intentional self-harm, initial encounter; F10.239 Alcohol dependence with withdrawal, unspecified; F33.2 Major depressive disorder, recurrent severe without psychotic features; F41.9 Anxiety disorder, unspecified; L27.0 Generalized skin eruption due to drugs and medicaments taken internally; T43.215A Adverse effect of selective serotonin and norepinephrine reuptake inhibitors, initial encounter; R19.7 Diarrhea, unspecified; R10.30 Lower abdominal pain, unspecified; I10 Essential (primary) hypertension; J44.9 Chronic obstructive pulmonary disease, unspecified; I69.351 Hemiplegia and hemiparesis following cerebral infarction affecting right dominant side; I69.328 Other speech and language deficits following cerebral infarction; I73.9 Peripheral vascular disease, unspecified; G47.30 Sleep apnea, unspecified; E78.5 Hyperlipidemia, unspecified; Z91.5 Personal history of self-harm; E66.9 Obesity, unspecified; Z68.34 Body mass index [BMI] 34.0-34.9, adult; Z59.9 Problem related to housing and economic circumstances, unspecified; Z87.891 Personal history of nicotine dependence
CPT/HCPCS: 71045; 80048; 80053; 82803; 83735; 84999; 85027; 93005; 94640; 94640 76; 94660; 94799; 99202; 99281; 99285; G0480; J1200; J1650; J2930; J7030; S0028

== ENCOUNTER 2017-10-03 11:24 | Emergency (ER) | payer OTHER ==
[~2017-10-03] VITALS: Ht 185.4 cm; Wt 110.9 kg
[~2017-10-03 11:24] MED LIST changes: +ALPRAZOLAM0.5 MG PO; +ANORO ELLIPTA1 EACH IH; +METOPROLOL TART25 MG PO
[2017-10-03] MEDS ORDERED: PERCOCET 5/31 TABLET PO (15:05)
[2017-10-03 15:27] VITALS: BP 121/71
== END 2017-10-03 15:34 | disposition home or self-care (01) ==
LOC: EME 11:24
DX: I73.9 Peripheral vascular disease, unspecified (principal); M79.604 Pain in right leg; M79.605 Pain in left leg; J44.9 Chronic obstructive pulmonary disease, unspecified; I10 Essential (primary) hypertension; F32.9 Major depressive disorder, single episode, unspecified; Z86.73 Personal history of transient ischemic attack (TIA), and cerebral infarction without residual deficits; Z87.891 Personal history of nicotine dependence; Z88.6 Allergy status to analgesic agent; Z88.8 Allergy status to other drugs, medicaments and biological substances
CPT/HCPCS: 93925; 99281; 99283

== ENCOUNTER 2017-10-22 12:50 | Emergency (ER) | payer OTHER ==
[~2017-10-22] VITALS: Ht 182.9 cm; Wt 118.5 kg
[2017-10-22] MEDS ORDERED: NORCO 5/3251 TABLET PO (14:11)
[2017-10-22 14:17] VITALS: BP 151/99
== END 2017-10-22 14:23 | disposition home or self-care (01) ==
LOC: EME 12:50
DX: R21 Rash and other nonspecific skin eruption (principal); L29.9 Pruritus, unspecified; R05 Cough; T40.2X5A Adverse effect of other opioids, initial encounter; I10 Essential (primary) hypertension; I69.351 Hemiplegia and hemiparesis following cerebral infarction affecting right dominant side; I69.328 Other speech and language deficits following cerebral infarction; F32.9 Major depressive disorder, single episode, unspecified; Z87.891 Personal history of nicotine dependence; Z87.19 Personal history of other diseases of the digestive system; Z98.890 Other specified postprocedural states; Z88.6 Allergy status to analgesic agent; Z88.8 Allergy status to other drugs, medicaments and biological substances
CPT/HCPCS: 99281; 99283; J1100

== ENCOUNTER 2017-10-30 04:39 | Emergency (ER) | payer OTHER ==
[~2017-10-30] VITALS: Ht 182.9 cm; Wt 115.9 kg
[2017-10-30] MEDS ORDERED: MEDROL DOSEPAK4 MG PO (05:27)
[2017-10-30 06:09] VITALS: BP 135/92
== END 2017-10-30 06:03 | disposition home or self-care (01) ==
LOC: EME 04:39
DX: M54.5 Low back pain (principal); I10 Essential (primary) hypertension; Z86.73 Personal history of transient ischemic attack (TIA), and cerebral infarction without residual deficits; Z79.82 Long term (current) use of aspirin; Z87.891 Personal history of nicotine dependence
CPT/HCPCS: 99281; 99283; J3010; J7512

== ENCOUNTER 2017-11-05 20:10 | Emergency (ER) | payer OTHER ==
[~2017-11-05] VITALS: Ht 182.9 cm; Wt 117.8 kg
[2017-11-05] MEDS ORDERED: PERCOCET 5/31 TABLET PO (23:28)
[2017-11-05 23:55] VITALS: BP 129/76
== END 2017-11-05 23:56 | disposition home or self-care (01) ==
LOC: EME 20:10
DX: G62.9 Polyneuropathy, unspecified (principal); I10 Essential (primary) hypertension; F32.9 Major depressive disorder, single episode, unspecified; Z86.73 Personal history of transient ischemic attack (TIA), and cerebral infarction without residual deficits; Z87.891 Personal history of nicotine dependence; Z79.82 Long term (current) use of aspirin
CPT/HCPCS: 99281; 99283; J1885